=== PATIENT | female | born 1970 | race Caucasian/White ===

== ENCOUNTER → 2018-09-11 08:42 | Outpatient (CLI) | payer OTHER, SELFPAY ==
--- NOTE | 2018-09-11 | DI.US.S_ITS ---
PROCEDURE: US ABDOMEN COMPLETE INDICATIONS: ELEVATED LABS TECHNIQUE: Real-time scanning was performed of the abdominal and retroperitoneal organs, with image documentation. COMPARISON: [facility], US, ABDOMEN COMPLETE, 11/03/2016, 16:37. FINDINGS: Liver: Liver is prominent in size and demonstrates mild increased echotexture. Gallbladder: No gallstones. No gallbladder wall thickening, pericholecystic fluid or sonographic Meza's sign. Biliary ducts: Intrahepatic bile ducts are non-dilated. Extrahepatic bile duct caliber measures 5.3 mm. Normal is 6-7 mm or less in diameter, or 10 mm or less post-cholecystectomy. Pancreas: Visualized portions of the pancreas are sonographically normal. Spleen: Spleen is normal in size and homogeneous in echotexture. Kidneys: Kidneys are normal in size and echotexture. Right kidney measures 11.4 cm long; left kidney measures 12.5 cm long. No hydronephrosis or nephrolithiasis. No solid masses. Aorta: Visualized aorta is normal in caliber at less than 3 cm. Iliacs: Proximal common iliac arteries are normal in caliber at less than 2.5 cm. IVC: Intrahepatic inferior vena cava is patent. Miscellaneous: No free abdominal fluid. IMPRESSION: 1. Diffusely increased hepatic echotexture. This finding is most likely secondary to hepatic fatty infiltration although other hepatocellular disease may have a similar appearance. Recommend clinical correlation. Dictated by: Ariadne Santa M.D. on 09/11/2018 at 11:24 Approved by: Ariadne Santa M.D. on 09/11/2018 at 11:26
== END ==
PROVIDERS: PCP Family Medicine; Visit Provider Family Medicine
DX: R79.89 Other specified abnormal findings of blood chemistry (principal)
CPT/HCPCS: 76700

== ENCOUNTER → 2020-02-05 08:06 | Outpatient (CLI) | payer OTHER, SELFPAY ==
--- NOTE | 2020-02-05 | DI.US.S_ITS ---
PROCEDURE: US ABDOMEN COMPLETE INDICATIONS: [facility]'S TECHNIQUE: Real-time scanning was performed of the abdominal and retroperitoneal organs, with image documentation. COMPARISON: [facility], US, US ABDOMEN COMPLETE, 09/11/2018, 9:05. FINDINGS: Liver: The liver demonstrates normal size. The liver demonstrates generalized increased echogenicity. This decreases ultrasound sensitivity for detection of hepatic masses. Gallbladder: No findings of gallstones or sludge are seen. The gallbladder wall is not thickened, measuring 3 mm or less. No specific pericholecystic fluid is seen. The sonographic Meza sign is negative. Biliary ducts: Intrahepatic bile ducts are non-dilated. Extrahepatic bile duct caliber measures 5 mm. Normal is 6-7 mm or less in diameter, or 10 mm or less post-cholecystectomy. Pancreas: Visualized portions of the pancreas are sonographically normal. Spleen: The spleen is mildly enlarged at 13.1 centimeters. Kidneys: Kidneys are normal in size and echotexture. Right kidney measures 10.6 cm long; left kidney measures 12.3 cm long. No hydronephrosis or nephrolithiasis. No solid masses. Aorta: Visualized aorta is normal in caliber at less than 3 cm. Iliacs: Proximal common iliac arteries are normal in caliber at less than 2.5 cm. IVC: Intrahepatic inferior vena cava is patent. Miscellaneous: No free abdominal fluid. IMPRESSION: The liver demonstrates increased echogenicity. This finding is nonspecific, yet it is most commonly attributed to fatty infiltration. The gallbladder demonstrates a normal sonographic appearance. No biliary dilatation is seen. Mild splenomegaly incidentally noted, 13.1 centimeters. Dictated by: Ronald Starr M.D. on 02/05/2020 at 9:25 Approved by: Ronald Starr M.D. on 02/05/2020 at 9:26
--- NOTE | 2020-02-05 08:25 | DI.MG.S_ITS ---
Patient Name: AMBER LOPEZ date: 1970 Sex: F Attending Physician: Mimi Indications: Date: 02/05/2020 08:18 At the request of: HUGO MARKHAM Procedure: MM screening mammo BI BILATERAL DIGITAL SCREENING MAMMOGRAM 3D/2D WITH CAD: 02/05/2020 CLINICAL: Routine screening. Comparison is made to exams dated: 09/23/2016 mammogram, 10/30/2013 mammogram, 11/19/2009 mammogram, and 09/18/2007 mammogram - [facility]. The tissue of both breasts is predominantly fatty. Current study was also evaluated with a Computer Aided Detection (CAD) system. No significant masses, calcifications, or other findings are seen in either breast. There has been no significant interval change. IMPRESSION: NEGATIVE There is no mammographic evidence of malignancy. A 1 year screening mammogram is recommended. This exam was interpreted at Station ID: [id number]. NOTE: For mammograms, a report in lay terms will be sent to the patient. Approximately 15% of breast malignancies will not be visualized mammographically. In the management of a palpable breast mass, a negative mammogram must not discourage biopsy of a clinically suspicious lesion. Electronically Signed By: Jose Miguel marquis/rickey:02/05/2020 09:49:21 letter sent: Normal Exam ACR BI-RADS Category 1: Negative 3341F
== END ==
PROVIDERS: PCP Family Medicine; Referring Provider Family Medicine; Visit Provider Family Medicine
DX: Z12.31 Encounter for screening mammogram for malignant neoplasm of breast (principal); R79.89 Other specified abnormal findings of blood chemistry; R16.1 Splenomegaly, not elsewhere classified
CPT/HCPCS: 76700; 77063; 77067

== ENCOUNTER → 2020-09-02 09:01 | Outpatient (CLI) | payer OTHER, SELFPAY ==
[2020-09-02 12:56] LABS: COVID19 -Nasal RAPID Negative (Negative)
== END ==
PROVIDERS: PCP Family Medicine; Visit Provider Student in an Organized Health Care Education/Training Program
DX: Z20.822 Contact with and (suspected) exposure to COVID-19 (principal)
CPT/HCPCS: 87635

== ENCOUNTER 2020-09-04 12:42 | Day surgery (SDC) | payer OTHER, SELFPAY ==
--- NOTE | 2020-09-04 12:03 | P.HP_ITS ---
History of Present Illness History of Present Illness Date Patient Seen: 09/04/20 Chief complaint: SDC Narrative: History of Present Illness: 49 Years Old Female seen today for consideration of a screening colonoscopy. This will be her first colonoscopy. FIT positive on 06/11/20. There have been no lower GI symptoms suggesting disease such as change in bowel habits, bleeding, abdominal pain or anemia. There's been no family history of colon cancer or colon polyps. Overall health issues have been stable, including no major cardiac events for at least 6 weeks. Past Medical History: Fatty infiltration of the liver HYPERGLYCEMIA HYPERLIPIDEMIA HYPERTENSION OBESITY, MORBID Past Surgical History: Section x2 (2002, 2004) Bilateral Tubal Ligation (2004) Family History: Father: Hyperlipidemia, Hypertension, Prostate Cancer; Alive and 75yo Mother: Osteoporosis, Alcoholism, Asthma from complications of RAD and osteoporosis at age 48yo siblings: sister 1972 brother 1973 PGF: DM-2 MGF: DM-2 Social History: Marital Status: - Ed Children: Bernice & Alisa Occupation: [employer] Household Members: & daughters Education: Masters Zero alcoholic drinks per day. Meds Home Medications and Allergies Home Medications Medication Instructions Recorded Confirmed Type atorvastatin 09/04/20 History hydrochlorothiazide 09/04/20 History metformin mg 09/04/20 History metoprolol succinate PO 09/04/20 History Allergies Allergy/AdvReac Type Severity Reaction Status Date / Time No Known Drug Allergies Allergy Verified 09/04/20 12:10 Review of Systems Review of Systems ROS: Yes All systems reviewed with the patient and are negative except as otherwise documented Exam Narrative Exam Narrative: General: well developed, well nourished, in no acute distress, Head: normocephalic and atraumatic, Lungs: normal respiratory effort, clear bilaterally to auscultation, no wheezes rales or rhonchi. Heart: normal rate and regular rhythm, no murmurs, rubs, gallops, or clicks, Abdomen: abdomen soft and non-tender without masses, organomegaly, or abdominal wall hernias, bowel sounds positive. Skin: intact without suspicious lesions or rashes, Psych: alert and cooperative; normal mood and affect; normal attention span and concentration; cognition, remote and recent memory appear to be intact, Assessment & Plan Assessment & Plan narrative: 1. Positive FIT test 2. Screening for colon cancer Plan for colonoscopy. The nature and character of the procedure as well as anticipated results were discussed. The possibility of not completing the procedure was also discussed. Possible complications including aspiration pneumonia, bleeding, perforation and reaction to medications either for sedation or preparation and missed lesions were discussed. Questions were answered and proceeding to the colonoscopy was elected. Informed consent signed. I sincerely appreciate the referral allowing me to participate in this patient's care. Please contact me with any questions or concerns.
--- NOTE | 2020-09-04 12:06 | PM.DS.1 ---
History of Present Illness History of Present Illness Chief complaint: [facility] Narrative: History of Present Illness: 49 Years Old Female seen today for consideration of a screening colonoscopy. This will be her first colonoscopy. FIT positive on 06/11/20. There have been no lower GI symptoms suggesting disease such as change in bowel habits, bleeding, abdominal pain or anemia. There's been no family history of colon cancer or colon polyps. Overall health issues have been stable, including no major cardiac events for at least 6 weeks. Past Medical History: Fatty infiltration of the liver HYPERGLYCEMIA HYPERLIPIDEMIA HYPERTENSION OBESITY, MORBID (BMI 40+) Past Surgical History: Section x2 (2002, 2004) Bilateral Tubal Ligation (2004) Family History: Father: Hyperlipidemia, Hypertension, Prostate Cancer; Alive and 75yo Mother: Osteoporosis, Alcoholism, Asthma from complications of RAD and osteoporosis at age 48yo siblings: sister 1972 brother 1973 PGF: DM-2 MGF: DM-2 Social History: Marital Status: - Ed Children: Bernice & Alisa Occupation: [employer] Household Members: & daughters Education: Masters Zero alcoholic drinks per day. Discharge Providers Provider Primary care physician: Shayla Le MD Discharge provider: Yahaira Ordoñez MD Discharge Plan Discharge Data Primary Care Provider: Shayla Le Attending Provider: Yahaira Ordoñez
--- NOTE | 2020-09-04 12:06 | PM.OP.ENDO ---
Operative Date/Time/Diagnoses Date of procedure: 09/04/20 Procedure Notes SCOAP/Timeout: 2:11 p.m. Procedure in detail: ENDOSCOPIST: Yahaira Ordoñez MD Sedation RN: Manfred Sousa RN Sedation start time: 2:12 p.m. Sedation end time: 2:32 p.m. PROCEDURE: Flexible sigmoidoscopy INDICATIONS: 1. Positive fit test 2. Screening for colon cancer MEDICATION: Levsin 0.125 mg sublingual, incremental doses of Versed and fentanyl until appropriate level sedation achieved. ASA CLASS: 2 COMPLICATIONS: None. EXTENT OF PROCEDURE: Cecum. QUALITY OF PREP: Good with portions of liquid stool. PROCEDURE: Prior to insertion of the colonoscope, a digital rectal examination was accomplished with circumferential palpation of the distal rectal mucosa without significant findings being noted. The high-definition colonoscope was passed into the rectum in the usual fashion and advanced over to the splenic flexure without difficulty. Despite multiple attempts at position changes from left lateral decubitus, to supine, to right lateral decubitus and back and forth several times, as well as gentle holds, the scope could not be advanced past the splenic flexure due to resistance of the tissue to advance past the flexure. Secondary to risk of perforation, procedure was converted from a colonoscopy to flexible sigmoidoscopy and scope was withdrawn. As the colonoscope was withdrawn, care was taken to expose and inspect the haustral folds and no abnormalities were seen. DESCENDING COLON: Normal, no polyps, diverticula or other abnormalities. SIGMOID COLON: Normal, no polyps, diverticula or other abnormalities. RECTUM: Normal. J maneuver was produced. There was no significant perianal disease. The J maneuver was broken. The remainder of the rectum was inspected and there was no external hemorrhoid disease. The scope was withdrawn. IMPRESSION: 1. Normal flexible sigmoidoscopy 2. Incomplete colonoscopy PLAN: 1. Recommend CT colonography to visualize any polyps versus referral to GI for repeat scope, would benefit from a pediatric colonoscope at next procedure. The possibility of a missed lesion including a malignancy has been discussed with the patient previously. Potential alarm symptoms have been discussed and should be reported immediately.
[2020-09-04 13:23] VITALS: BP 148/84; PULSE 72; RESP 14; TEMP 37.3; O2SAT 100; BMI 33.3
[2020-09-04] MEDS: LACTATED RINGERS 1,000 ML 200 ML IV (13:35)
[2020-09-04] MEDS: MIDAZOLAM 5 MG/5 ML VIAL IV (14:22)
[2020-09-04] MEDS: fentaNYL 250 MCG/5 ML INJ IV (14:24)
[2020-09-04 14:38] VITALS: BP 139/63; PULSE 61; RESP 16; O2SAT 98
[2020-09-04 14:43] VITALS: BP 132/66; PULSE 67; RESP 18; O2SAT 99
[2020-09-04 14:48] VITALS: BP 142/73; PULSE 52; RESP 16; TEMP 36.9; O2SAT 99
[2020-09-04 14:53] VITALS: BP 128/67; PULSE 52; RESP 14; O2SAT 98
[2020-09-04 14:57] VITALS: BP 122/65; PULSE 60; RESP 12; TEMP 36.7; O2SAT 97
== END 2020-09-04 15:11 | disposition home or self-care (01) ==
PROVIDERS: PCP Family Medicine; Referring Provider Student in an Organized Health Care Education/Training Program; Visit Provider Student in an Organized Health Care Education/Training Program
PROC: 0DJD8ZZ Inspection of Lower Intestinal Tract, Via Natural or Artificial Opening Endoscopic (ICD-10-PCS; CPT 45378; principal; 2020-09-04 13:45)
DX: R19.5 Other fecal abnormalities (principal); Z53.09 Procedure and treatment not carried out because of other contraindication; E66.01 Morbid (severe) obesity due to excess calories; I10 Essential (primary) hypertension; E78.5 Hyperlipidemia, unspecified; R73.9 Hyperglycemia, unspecified; Z79.84 Long term (current) use of oral hypoglycemic drugs
CPT/HCPCS: 45378; J2250; J3010

== ENCOUNTER → 2021-02-15 12:51 | Outpatient (CLI) | payer OTHER, SELFPAY ==
[2021-02-15 16:20] LABS: COVID19 -Nasal RAPID Negative (Negative)
== END ==
PROVIDERS: PCP Family Medicine; Visit Provider Nurse Practitioner Family
DX: Z01.812 Encounter for preprocedural laboratory examination (principal); Z20.822 Contact with and (suspected) exposure to COVID-19
CPT/HCPCS: 87635

== ENCOUNTER 2021-02-17 11:12 | Day surgery (SDC) | payer OTHER, SELFPAY ==
--- NOTE | 2021-02-17 11:55 | PM.HP.1 ---
History of Present Illness History of Present Illness Date Patient Seen: 02/17/21 Time Patient Seen: 11:56 Chief complaint: SDC Narrative: I reviewed my recent clinic note. Prior failed colonoscopy attempt to splenic flexure. The history of positive FIT Patient History Family & Social History Social History: household members family Tobacco & Substance use: Smoking Status Never smoker alcohol intake frequency holiday/special occasion Substance Use Type does not use Meds Home Medications and Allergies Home Medications Medication Instructions Recorded Confirmed Type atorvastatin 10 mg tablet 09/04/20 History hydrochlorothiazide 25 mg tablet 09/04/20 History metformin 500 mg tablet mg 09/04/20 History metoprolol succinate 25 mg PO 09/04/20 History tablet,extended release 24 hr Allergies Allergy/AdvReac Type Severity Reaction Status Date / Time No Known Drug Allergies Allergy Verified 09/04/20 12:10 Review of Systems Review of Systems ROS: Yes All systems reviewed with the patient and are negative except as otherwise documented Exam Const General: cooperative and comfortable Orientation: alert HENMT Head: normocephalic Ears: external ears normal Nose: external nose normal Face and sinus: normal facial exam Mouth: oral mucosae normal Eyes General: appearance normal, both eyes and all related structures Neck Neck: normal visual inspection Chest Chest: normal inspection of the chest Resp Effort & Inspection: normal respiratory effort Auscultation: clear to auscultation bilaterally Cardio Rate: regular rate Rhythm: regular rhythm Heart Sounds: no murmurs GI Inspection: normal to inspection Palpation: soft and No tender Auscultation: normal bowel sounds Skin General: no rashes or lesions noted and No jaundice Neuro General: patient alert and moves all extremities Cognition: normal cognition Speech: speech normal Extrem General: no pedal edema Psych Appearance: grossly normal Assessment & Plan Assessment & Plan narrative: 50-year-old female with a positive FIT. She had a prior attempt at colonoscopy which was successful only to splenic flexure. Repeat colonoscopy with monitored anesthesia is planned for today. Time Spent With Patient Critical Care time: I spent a total of [] minutes of critical care time on this patient's care today; this time is exclusive of procedural time.
--- NOTE | 2021-02-17 11:57 | PM.PREOP ---
Pre-operative Note COVID-19 COVID-19 status: Negative Result date/Date tested (Pos, Neg/Pending): 02/15/21 Interval Note History & Physical reviewed/Exam performed by Physician: Yes Changes to H&P: No ASA Class (for procedural sedation): II
[2021-02-17 12:10] VITALS: BP 144/90; PULSE 74; RESP 16; TEMP 36.4; O2SAT 100
[2021-02-17] MEDS: SODIUM CHLORIDE 0.9% 1,000 ML 125 ML IV (12:10)
[2021-02-17 12:11] VITALS: BMI 30.9
--- NOTE | 2021-02-17 13:19 | P.OP.ENDO_ITS ---
Operative Date/Time/Diagnoses Date of procedure: 02/17/21 Time of procedure: 13:19 Pre-op diagnosis: Positive FIT Post-op diagnosis: same Procedure & Clinicians Study performed: Colonoscopy Same procedure as scheduled: Yes Indications: Positive FIT Surgeon: Delbert Bey Procedure Notes SCOAP/Timeout: Done Procedure in detail: After the risks and benefits were explained, written and verbal informed consent was obtained. The patient was brought into the procedure room and placed into the left lateral decubitus position. Please see nurse side seam envelope machine operator notes Digital rectal examination was accomplished. The scope was introduced into the patient and advanced under direct visualization to the cecum as identified by the appendiceal orifice and ileocecal valve. The scope was slowly withdrawn to carefully examine the mucosa for any defects or lesions. Comprehensive imaging was accomplished throughout the rectum including the dentate line. The colon was decompressed, the scope was then removed from the patient who tolerated the procedure well. Bowel prep adequate Pediatric colonoscope Scope withdrawal time: 6 minutes Sedation minutes: 17 Specimen(s): none sent Complications: none Impression: There was some mild tortuosity to the left colon. No significant polyps mass lesions or inflammatory features identified throughout. The patient had evidence of grade 1-2 internal nonbleeding hemorrhoids. Endoscopic diagnosis 1. Grade 1-2 internal hemorrhoids (based on today's exam the most likely source for the positive FIT) 2. Otherwise visually unremarkable colonoscopy to cecum Post-procedure Recommendations: Colonscopy in 10 years Plan for aftercare: Repeat colonoscopy 10 years time sooner should symptoms warrant an earlier exam. Disposition: PACU
[2021-02-17 13:22] VITALS: BP 109/61; PULSE 67; RESP 16; TEMP 36.7; O2SAT 95
[2021-02-17 13:27] VITALS: BP 128/72; PULSE 63; RESP 14; O2SAT 97
[2021-02-17 13:32] VITALS: BP 119/73; PULSE 61; RESP 16; O2SAT 100
[2021-02-17 13:37] VITALS: BP 121/74; PULSE 60; RESP 14; TEMP 37.1; O2SAT 100
--- NOTE | 2021-02-17 13:47 | SUR.PHASEI ---
Stable pacu stay, to OPD
[2021-02-17 13:48] VITALS: BP 122/69; PULSE 61; RESP 14; TEMP 36.6; O2SAT 100
--- NOTE | 2021-02-17 14:12 | SUR.PHASEII ---
d/c instructions discussed, pt ready to go, belly soft, no nausea. Left when ready and left in stable condition.
== END 2021-02-17 14:00 | disposition home or self-care (01) ==
PROVIDERS: PCP Family Medicine; Referring Provider Internal Medicine Gastroenterology; Visit Provider Internal Medicine Gastroenterology
PROC: 0DJD8ZZ Inspection of Lower Intestinal Tract, Via Natural or Artificial Opening Endoscopic (ICD-10-PCS; CPT 45378; principal; 2021-02-17 12:30)
DX: R19.5 Other fecal abnormalities (principal); K64.1 Second degree hemorrhoids
CPT/HCPCS: 45378

== ENCOUNTER → 2021-04-21 17:26 | Outpatient (CLI) | payer OTHER, SELFPAY ==
--- NOTE | 2021-04-21 | DI.MG.S_ITS ---
BILATERAL DIGITAL SCREENING MAMMOGRAM 3D/2D WITH CAD: 04/21/2021 CLINICAL: Routine screening. Comparison is made to exams dated: 02/05/2020 mammogram, 09/23/2016 mammogram, and 10/30/2013 mammogram - [facility]. The tissue of both breasts is predominantly fatty. Current study was also evaluated with a Computer Aided Detection (CAD) system. No significant masses, calcifications, or other findings are seen in either breast. There has been no significant interval change. IMPRESSION: NEGATIVE There is no mammographic evidence of malignancy. A 1 year screening mammogram is recommended. This exam was interpreted at Station ID: [id number]. NOTE: For mammograms, a report in lay terms will be sent to the patient. Approximately 15% of breast malignancies will not be visualized mammographically. In the management of a palpable breast mass, a negative mammogram must not discourage biopsy of a clinically suspicious lesion. Electronically Signed By: Pranay Bauman M.D., jr/rickey:04/22/2021 08:37:27 letter sent: Normal Exam ACR BI-RADS Category 1: Negative 3341F
== END ==
PROVIDERS: PCP Family Medicine; Referring Provider Family Medicine; Visit Provider Family Medicine
DX: Z12.31 Encounter for screening mammogram for malignant neoplasm of breast (principal)
CPT/HCPCS: 77063; 77067

== ENCOUNTER → 2023-12-22 07:53 | Outpatient (CLI) | payer OTHER, SELFPAY ==
--- NOTE | 2023-12-22 07:55 | DI.MG.S_ITS ---
BILATERAL DIGITAL SCREENING MAMMOGRAM 3D/2D WITH CAD: 12/22/2023 Comparison is made to exams dated: 04/21/2021 mammogram, 02/05/2020 mammogram, and 09/23/2016 mammogram - [facility]. Both breasts are almost entirely fatty (category a/<25% glandular tissue). Current study was also evaluated with a Computer Aided Detection (CAD) system. No significant masses, calcifications, or other findings are seen in either breast. There has been no significant interval change. IMPRESSION: NEGATIVE There is no mammographic evidence of malignancy. A 1 year screening mammogram is recommended. Based on the Tyrer Cuzick model (a risk assessment model) the patient's lifetime risk is 6.1% and her 10 year risk is 1.7%. According to the ACR, ACS, and NCCN guidelines, an annual breast MRI exam along with mammogram is recommended if the patient's lifetime risk is 20% or greater. This exam was interpreted at Station ID: [id number]. NOTE: For mammograms, a report in lay terms will be sent to the patient. Approximately 15% of breast malignancies will not be visualized mammographically. In the management of a palpable breast mass, a negative mammogram must not discourage biopsy of a clinically suspicious lesion. Electronically Signed By: Yuriy huerta/rickey:12/22/2023 10:50:56 letter sent: Normal Exam ACR BI-RADS Category 1: Negative 3341F
== END ==
LOC: MAMMO 07:54
PROVIDERS: PCP Family Medicine; Referring Provider Family Medicine; Visit Provider Family Medicine
DX: Z12.31 Encounter for screening mammogram for malignant neoplasm of breast (principal); R92.313 Mammographic fatty tissue density, bilateral breasts
CPT/HCPCS: 77063; 77067

== ENCOUNTER → 2024-01-29 10:06 | Outpatient (CLI) | payer OTHER, SELFPAY ==
--- NOTE | 2024-01-29 10:07 | DI.US.S_ITS ---
PROCEDURE: US ABDOMEN LIMITED INDICATIONS: STEATOSIS OF LIVER TECHNIQUE: Real-time scanning was performed of the abdominal and retroperitoneal organs, with image documentation. COMPARISON: [facility], US, US ABDOMEN COMPLETE, 02/05/2020, 8:51. FINDINGS: Liver: Increased liver echogenicity, likely mild hepatic steatosis. No solid mass. Gallbladder: No gallstones. No wall thickening. No pericholecystic edema. Negative sonographic Meza's sign. Biliary ducts: Intrahepatic bile ducts are non-dilated. Extrahepatic bile duct caliber measures 6 mm. Normal is 6-7 mm or less in diameter, or 10 mm or less post-cholecystectomy. Pancreas: Visualized portions of the pancreas are sonographically normal. Miscellaneous: No free abdominal fluid. IMPRESSION: Increased liver echogenicity, likely [id number] hepatic steatosis. Dictated by: Dick De Jesus M.D. on 01/29/2024 at 16:54 Approved by: Dick De Jesus M.D. on 01/29/2024 at 16:55
== END ==
LOC: US 10:06
PROVIDERS: PCP Family Medicine; Referring Provider Family Medicine; Visit Provider Family Medicine
DX: K76.0 Fatty (change of) liver, not elsewhere classified (principal)
CPT/HCPCS: 76705

== ENCOUNTER → 2025-05-22 15:41 | Outpatient (CLI) | payer OTHER, SELFPAY ==
--- NOTE | 2025-05-22 15:44 | DI.MG.S_ITS ---
MM screening mammo BI: 05/22/2025. BI-RADS: 1 CLINICAL: 54-year old female for bilateral screening mammogram. Tyrer-Cuzick lifetime risk of 5.7%. No personal or first-degree family history of breast cancer. PRIOR EXAMS 12/22/2023, 04/21/2021, 02/05/2020, 09/23/2016. MAMMOGRAPHY TECHNIQUE: 2D and 3D (tomosynthesis) digital mammographic views obtained, with additional images as needed for full coverage. Current study was also evaluated with a Computer Aided Detection (CAD) system. DENSITY A. The breasts are almost entirely fatty. MAMMOGRAPHY FINDINGS Bilateral: No suspicious mass, asymmetry, microcalcification, or other abnormality seen. IMPRESSION: * No evidence of malignancy. RECOMMENDATIONS Bilateral * Annual screening mammography. OVERALL ASSESSMENT CATEGORY BI-RADS-1: Negative. The [employer] recommends annual screening mammography beginning at age 40 for women with average risk of breast cancer. ELECTRONICALLY SIGNED: Jose Miguel Iyer M.D. on 05/22/2025 at 11:26:52 PM PT Interpreting Station ID: [id number]
== END ==
LOC: MAMMO 15:42
PROVIDERS: PCP Family Medicine; Referring Provider Family Medicine; Visit Provider Family Medicine
DX: Z12.31 Encounter for screening mammogram for malignant neoplasm of breast (principal); R92.313 Mammographic fatty tissue density, bilateral breasts
CPT/HCPCS: 77063; 77067